=== PATIENT | female | born 1960 | race Caucasian/White ===

== ENCOUNTER 2019-07-30 19:56 | Emergency (ER) | payer MEDICAID ==
[~2019-07-30] VITALS: Ht 157.5 cm; Wt 86.2 kg
[2019-07-30 21:05] VITALS: BP 145/86
--- NOTE | 2019-07-30 22:00 | NUR ---
58 Y/O FEMALE BIB SELF FOR CHEST PAIN AND SOB SINCE LAST NIGHT. PAIN IS UNPROVOKED 11/24; NONRADIATING. BREATH SOUNDS CLEAR THROUGHOUT. PATIENT STATES THAT SHE HAS A DRY COUGH. DENIES N/V/D/CHILLS/FEVER. NO SOB OBSERVED AT THIS TIME. ERMD MADE AWARE OF STATUS. SIDE RAILSX1. PLACED ON MONITOR. PMH:ASTHMA;DM; HTN RX:VITAMINS NKDA
[2019-07-30 22:35] LABS: BASOPHILS % (AUTO) 0.5 % (0.0-2.0); EOSINOPHILS # (AUTO) 0.1 K/uL (0-0.4); EOSINOPHILS % (AUTO) 1.8 % (0.0-4.0); HEMATOCRIT 40.3 % (36-48); HEMOGLOBIN 13.2 g/dL (12.0-16.0); LYMPHOCYTES % (AUTO) 32.5 % (20.5-51.1); MEAN CORPUSCULAR HEMOGLOBIN 28 pg (27-31); MEAN CORPUSCULAR HGB CONC 33 g/dL (33-37); MEAN CORPUSCULAR VOLUME 84.2 fL (80-94); MONOCYTES # (AUTO) 0.5 K/uL (0.8-1.0); MONOCYTES % (AUTO) 7.9 % (1.7-9.3); NEUTROPHILS # (AUTO) 3.5 K/uL (1.8-7.7); NEUTROPHILS % (AUTO) 57.3 % (42.2-75.2); PLATELET COUNT (AUTO) 218 K/uL (140-450); RED BLOOD CELL COUNT(AUTO) 4.78 MIL/uL (4.20-5.40); RED CELL DISTRIBUTION WIDTH 13.4 % (11.6-13.7); WHITE BLOOD COUNT (AUTO) 6.1 K/uL (4.8-10.8)
[2019-07-30 22:52] LABS: ANION GAP 7.7 (8-16); CARBON DIOXIDE 30.9 mmol/L (21-32); CREATININE 0.7 mg/dL (0.6-1.3); POTASSIUM 3.6 mmol/L (3.5-5.1)
[2019-07-30 22:57] LABS: ALBUMIN 3.9 g/dL (3.4-5.0); TOTAL BILIRUBIN 0.4 mg/dL (0.0-1.0)
--- NOTE | 2019-07-30 23:23 | NUR ---
PATIENT IS SITTING QUIETLY IN BED. WILL CONTINUE TO MONITOR.
[2019-07-30] MEDS ORDERED: KETOROLAC 30 MG/ML VIAL IM ONE (23:35)
[2019-07-31 00:15] LABS: CREATINE KINASE MB 0.9 ng/mL (0-3.6)
[2019-07-31 00:46] VITALS: BP 138/58
== END 2019-07-31 00:46 | disposition home or self-care (01) ==
LOC: MED 19:56
DX: R07.89 Other chest pain (principal); J45.909 Unspecified asthma, uncomplicated; I10 Essential (primary) hypertension; E11.9 Type 2 diabetes mellitus without complications
CPT/HCPCS: 36415; 71045; 80053; 82550; 82553; 83690; 84484; 85025; 93005; 96372; 99284; J1885

== ENCOUNTER 2021-10-28 08:25 | Emergency (ER) | payer MEDICAID ==
[~2021-10-28] VITALS: Ht 154.9 cm; Wt 91.7 kg
[2021-10-28 08:37] VITALS: BP 153/87
--- NOTE | 2021-10-28 08:43 | NUR ---
PATIENT AMBULATED TO [facility] [place].
--- NOTE | 2021-10-28 08:46 | NUR ---
BIB SELF C/O 10/10 LEFT SHOULDER PAIN, LEFT HAND TINGLING X1 MONTH. DENIES TRAUMA/INJURY.PMH: LUPUS, FIBROMYALGIA,HYSTERECTOMY.
[2021-10-28] MEDS ORDERED: GABAPENTIN 300 MG CAP PO ONE (09:30)
[2021-10-28] MEDS ORDERED: KETOROLAC 30 MG/ML VIAL IM ONE (09:30)
[2021-10-28] MEDS ORDERED: predniSONE 20 MG TAB PO ONE (09:30)
--- NOTE | 2021-10-28 10:30 | NUR ---
PATIENT RESTING IN BED WITH EYES CLOSED, PROVIDED BLANKET FOR COMFORT. WILL CONTINUE TO MONITOR.
[2021-10-28] MEDS ORDERED: GABA300C PO (11:17)
[2021-10-28] MEDS ORDERED: PRED20TA5 PO (11:17)
[2021-10-28] MEDS ORDERED: NAPR-54 PO (11:17)
[2021-10-28 11:36] VITALS: BP 123/91
--- NOTE | 2021-10-28 11:37 | NUR ---
Patient discharged with v/s stable. Written and verbal after care instructions ABOUT SHOULDER IMPINGMENT SYNDROME given and explained. Patient alert, oriented and verbalized understanding of instructions. Ambulatory with steady gait. All questions addressed prior to discharge. ID band removed. Patient advised to follow up with PMD. Rx of GABAPENTIN AND NAPROXEN given. Patient educated on indication of medication including possible reaction and side effects. Opportunity to ask questions provided and answered.
== END 2021-10-28 11:36 | disposition home or self-care (01) ==
LOC: MED 08:25
DX: M75.42 Impingement syndrome of left shoulder (principal); M54.2 Cervicalgia; I10 Essential (primary) hypertension; J45.909 Unspecified asthma, uncomplicated; E11.9 Type 2 diabetes mellitus without complications; Z90.710 Acquired absence of both cervix and uterus; Z79.899 Other long term (current) drug therapy; Z79.1 Long term (current) use of non-steroidal anti-inflammatories (NSAID)
CPT/HCPCS: 72040; 73030; 96372; 99284; J1885; J7512

== ENCOUNTER 2022-04-02 18:16 | Emergency (ER) | payer MEDICAID ==
[~2022-04-02] VITALS: Ht 162.6 cm; Wt 93.0 kg
[~2022-04-02 18:16] MED LIST: GABA300C PO; NAPR-54 PO; PRED20TA5 PO
[2022-04-02 18:27] VITALS: BP 165/82
[2022-04-02] MEDS ORDERED: IBUPROFEN 600 MG TAB PO ONE (18:45)
--- NOTE | 2022-04-02 18:55 | NUR ---
61/F PRESENTS TO ED WITH C/O RIGHT KNEE PAIN X2 WEEKS S/P SLIP AND FALL, STATING PAIN WORSENING. DENIES HEAD OR NECK INJURY. REPORTS TAKING TYLENOL AND MOTRIN WITH NO RELIEF. PATIENT AMBULATORY UPON ARRIVAL WITH NO ASSISTANCE.
--- NOTE | 2022-04-02 19:16 | NUR ---
Pt report given to SUGEY WASHBURN. Transfer of care at this time.
[2022-04-02] MEDS ORDERED: IBUP-2213 PO (19:49)
--- NOTE | 2022-04-02 20:02 | NUR ---
DERRICK WRAP X 1 TO R KNEE + CMS
[2022-04-02 20:18] VITALS: BP 165/82
--- NOTE | 2022-04-02 20:18 | NUR ---
Patient discharged with v/s stable. Written and verbal after care instructions given and explained. Patient verbalized understanding. Ambulatory with steady gait. All questions addressed prior to discharge. Advised to follow up with PMD.
--- NOTE | 2022-04-02 20:19 | NUR ---
The patient's care was reviewed and supervised by Jocelynn Carter RN.
== END 2022-04-02 20:18 | disposition home or self-care (01) ==
LOC: MED 18:16
DX: S86.911A Strain of unspecified muscle(s) and tendon(s) at lower leg level, right leg, initial encounter (principal); J45.909 Unspecified asthma, uncomplicated; E11.9 Type 2 diabetes mellitus without complications; I10 Essential (primary) hypertension; Z79.4 Long term (current) use of insulin; Z79.899 Other long term (current) drug therapy; W18.30XA Fall on same level, unspecified, initial encounter; Y93.89 Activity, other specified; Y92.89 Other specified places as the place of occurrence of the external cause; Y99.8 Other external cause status
CPT/HCPCS: 73562; 99283

== ENCOUNTER 2022-04-11 09:38 | Emergency (ER) | payer MEDICAID ==
[~2022-04-11] VITALS: Ht 154.9 cm; Wt 91.6 kg
[~2022-04-11 09:38] MED LIST changes: +IBUP-2213 PO
[2022-04-11 09:43] VITALS: BP 159/91
--- NOTE | 2022-04-11 09:46 | NUR ---
AMBULATED TO BED 9
--- NOTE | 2022-04-11 09:56 | NUR ---
61/F C/O R KNEE PAIN ONSET 1 MONTH. DENIES TRAUMA OR INJURY. STAES SHE WAS SEEN FOR SAME S/SX LAST WEEK AND PENDING PCP APPOINTMENT BUT PAIN GOT WORSE. STATES TAKING MOTRIN AND TYLENOL WITH NO RELIEF. AAOX4, AMBULATORY. VITALS STABLE. PMH: ARTHRITIS, LUPUS, HTN, CHOLESTEROL NKA
[2022-04-11 09:57] VITALS: BP 155/86
[2022-04-11] MEDS ORDERED: HYDROcodone/APAP 5/325 MG 1 TAB TAB PO ONE (10:00)
--- NOTE | 2022-04-11 10:22 | NUR ---
US AT BEDSIDE
[2022-04-11 10:32] LABS: BASOPHILS % (AUTO) 0.7 % (0.0-2.0); EOSINOPHILS # (AUTO) 0.1 K/uL (0-0.4); HEMATOCRIT 37.9 % (36-48); HEMOGLOBIN 12.5 g/dL (12.0-16.0); LYMPHOCYTES # (AUTO) 1.4 K/uL (2.5-16.5); LYMPHOCYTES % (AUTO) 34.1 % (20.5-51.1); MEAN CORPUSCULAR HEMOGLOBIN 27 pg (27-31); MEAN CORPUSCULAR HGB CONC 33 g/dL (33-37); MEAN CORPUSCULAR VOLUME 82.6 fL (80-94); MONOCYTES # (AUTO) 0.3 K/uL (0.8-1.0); MONOCYTES % (AUTO) 8.6 % (1.7-9.3); NEUTROPHILS # (AUTO) 2.1 K/uL (1.8-7.7); NEUTROPHILS % (AUTO) 53.6 % (42.2-75.2); PLATELET COUNT (AUTO) 207 K/uL (140-450); RED BLOOD CELL COUNT(AUTO) 4.58 MIL/uL (4.20-5.40); RED CELL DISTRIBUTION WIDTH 13.6 % (11.6-13.7)
--- NOTE | 2022-04-11 11:02 | NUR ---
XR AT BEDSIDE
[2022-04-11 11:48] LABS: ALBUMIN 3.5 g/dL (3.4-5.0); ANION GAP 11.7 (8-16); CREATININE 0.7 mg/dL (0.6-1.3); POTASSIUM 3.7 mmol/L (3.5-5.1); TOTAL BILIRUBIN 0.4 mg/dL (0.0-1.0)
[2022-04-11] MEDS ORDERED: LID5T TP (11:58)
[2022-04-11] MEDS ORDERED: ACET-8386 PO (11:58)
== END 2022-04-11 12:10 | disposition home or self-care (01) ==
LOC: MED 09:38
DX: M13.861 Other specified arthritis, right knee (principal); J45.909 Unspecified asthma, uncomplicated; I10 Essential (primary) hypertension; E11.9 Type 2 diabetes mellitus without complications; Z79.4 Long term (current) use of insulin; Z79.899 Other long term (current) drug therapy
CPT/HCPCS: 36415; 73562; 80053; 85025; 93971; 99285; Q0092

== ENCOUNTER 2022-12-20 16:11 | Emergency (ER) | payer MEDICAID ==
[~2022-12-20] VITALS: Ht 154.9 cm; Wt 74.8 kg
[~2022-12-20 16:11] MED LIST changes: +ACET-8905 PO; +LID5T TP
[2022-12-20 16:12] VITALS: BP 139/113
--- NOTE | 2022-12-20 16:21 | NUR ---
Patient ambulated to bed 6.
--- NOTE | 2022-12-20 16:25 | NUR ---
Patient being evaluated by CAMACHO Echeverria at bedside.
[2022-12-20 16:38] LABS: BASOPHILS # (AUTO) 0.1 K/uL (0.00-0.22); BASOPHILS % (AUTO) 0.6 % (0.0-2.0); EOSINOPHILS # (AUTO) 0.1 K/uL (0-0.4); EOSINOPHILS % (AUTO) 0.7 % (0.0-4.0); HEMATOCRIT 43.8 % (36-48); HEMOGLOBIN 14.6 g/dL (12.0-16.0); LYMPHOCYTES # (AUTO) 3.4 K/uL (2.5-16.5); LYMPHOCYTES % (AUTO) 23.5 % (20.5-51.1); MEAN CORPUSCULAR HEMOGLOBIN 27 pg (27-31); MEAN CORPUSCULAR HGB CONC 33 g/dL (33-37); MEAN CORPUSCULAR VOLUME 82.3 fL (80-94); MONOCYTES % (AUTO) 6.9 % (1.7-9.3); NEUTROPHILS # (AUTO) 9.9 K/uL (1.8-7.7); NEUTROPHILS % (AUTO) 68.3 % (42.2-75.2); PLATELET COUNT (AUTO) 283 K/uL (140-450); RED BLOOD CELL COUNT(AUTO) 5.32 MIL/uL (4.20-5.40); WHITE BLOOD COUNT (AUTO) 14.4 K/uL (4.8-10.8)
[2022-12-20] MEDS ORDERED: KETOROLAC 30 MG/ML VIAL IVP ONE (16:40)
[2022-12-20 16:57] LABS: ALBUMIN 3.9 g/dL (3.4-5.0); ANION GAP 12.6 (8-16); ASPARTATE AMINOTRANSFERASE 39 U/L (15-37); CARBON DIOXIDE 28.4 mmol/L (21-32); CHLORIDE 103 mmol/L (98-107); CREATININE 0.7 mg/dL (0.6-1.3); GFR ARICAN-AMERICAN 109 mL/min (>90); GLUCOSE 118 mg/dL (74-106); SODIUM SERUM 140 mmol/L (136-145); TOTAL BILIRUBIN 0.7 mg/dL (0.0-1.0); UREA NITROGEN, BLOOD 8 mg/dL (7-18)
--- NOTE | 2022-12-20 17:29 | NUR ---
X-Ray at bedside.
[2022-12-20 18:29] VITALS: BP 137/68
[2022-12-20] MEDS ORDERED: NAPR-1704 PO (18:30)
--- NOTE | 2022-12-20 18:33 | NUR ---
CAMACHO Echeverria re-evaluating patient at bedside.
--- NOTE | 2022-12-20 18:49 | NUR ---
Patient discharged with v/s stable. Written and verbal after care instructions given. Patient alert, oriented and verbalized understanding of instructions. Ambulatory with steady gait. All questions addressed prior to discharge. ID band removed. Patient advised to follow up with PMD. Rx of Naproxen given. Opportunity to ask questions provided and answered.
== END 2022-12-20 18:49 | disposition home or self-care (01) ==
LOC: MED 16:11
DX: M25.522 Pain in left elbow (principal); R07.89 Other chest pain; J45.909 Unspecified asthma, uncomplicated; E11.9 Type 2 diabetes mellitus without complications; I10 Essential (primary) hypertension; Z79.899 Other long term (current) drug therapy
CPT/HCPCS: 36415; 73080; 80053; 84484; 85025; 93005; 96374; 99285; J1885

== ENCOUNTER 2023-06-02 10:14 | Emergency (ER) | payer MEDICAID ==
[~2023-06-02] VITALS: Ht 157.5 cm; Wt 67.6 kg
[~2023-06-02 10:14] MED LIST changes: +NAPR-1704 PO
[2023-06-02 10:31] VITALS: BP 111/91; PULSE 91; RESP 18; TEMP 97.9; O2SAT 97
[2023-06-02] MEDS ORDERED: TAMSULOSIN 0.4 MG CAP PO SCH (12:50)
[2023-06-02] MEDS ORDERED: PHENAZOPYRIDINE 100 MG TAB PO ONE (12:50)
[2023-06-02] MEDS ORDERED: cephALEXin 500 MG CAP PO ONE (12:50)
[2023-06-02] MEDS ORDERED: CEPH-588 PO (12:54)
[2023-06-02] MEDS ORDERED: PYR100 PO (12:54)
[2023-06-02] MEDS ORDERED: TAMS0.4C96 PO (12:54)
[2023-06-02] MEDS ORDERED: KETOROLAC 30 MG/ML VIAL IM ONE (13:20)
[2023-06-02 13:33] VITALS: O2SAT 97
== END 2023-06-02 13:47 | disposition home or self-care (01) ==
LOC: MED 10:14
DX: R39.11 Hesitancy of micturition (principal); R30.0 Dysuria; J45.909 Unspecified asthma, uncomplicated; E11.9 Type 2 diabetes mellitus without complications; I10 Essential (primary) hypertension; Z79.899 Other long term (current) drug therapy; Z79.2 Long term (current) use of antibiotics; Z79.1 Long term (current) use of non-steroidal anti-inflammatories (NSAID)
CPT/HCPCS: 76856; 93976; 96372; 99285; J1885; Q0092